=== PATIENT | female | born 1945 ===

== ENCOUNTER 2017-02-11 15:52 | Emergency (ER) | payer OTHER ==
[2017-02-11 16:23] VITALS: BP 151/71
--- NOTE | 2017-02-11 16:55 | UC ---
Skin Complaint HPI - HPI Summary HPI Summary: GOT A BUG BITE ON THE TIP OF HER NOSE ABOUT 12 DAYS AGO. DEVELOPED AN INTENSELY ITCHY BUMPY RASH LEFT SIDE OF NOSE AFTER THAT. PT FEELS IT IS SPREADING. NO FEVER. - History of Current Complaint Chief Complaint: [facility] Time Seen by Provider: 02/11/17 16:54 Stated Complaint: SKIN COMPLAINT Hx Obtained From: Patient Onset/Duration: Gradual Onset, Lasting Days, Still Present Timing: Constant Onset Severity: Moderate Current Severity: Moderate Pain Intensity: 0 Pain Scale Used: 0-10 Numeric Location: Discrete - LEFT SIDE OF NOSE Character: Pruritus, Redness Aggravating: Touch Alleviating: Nothing Associated Signs & Symptoms: Positive: Rash Related History: Insect Bite/Sting - Allergy/Home Medications Allergies/Adverse Reactions: Allergies Allergy/AdvReac Type Severity Reaction Status Date / Time No Known Allergies Allergy Verified 02/11/17 16:22 Review of Systems Constitutional: Negative Skin: Rash Respiratory: Negative Cardiovascular: Negative Gastrointestinal: Negative All Other Systems Reviewed And Are Negative: Yes PMH/Surg Hx/FS Hx/Imm Hx Previously Healthy: Yes - Surgical History Surgical History: Yes Surgery Procedure, Year, and Place: tubal - Family History Known Family History: Negative: Hypertension, Diabetes - Social History Alcohol Use: None Substance Use Type: None Smoking Status (MU): Never Smoked Tobacco Physical Exam Triage Information Reviewed: Yes Appearance: Well-Appearing, No Pain Distress, Well-Nourished Vital Signs: Initial Vital Signs Temp 98.1 F 02/11/17 16:16 Pulse 59 02/11/17 16:16 Resp 16 02/11/17 16:16 BP 151/71 02/11/17 16:16 Pulse Ox 100 02/11/17 16:16 Vital Signs Reviewed: Yes Eyes: Positive: Conjunctiva Clear ENT: Positive: Hearing grossly normal Neck: Positive: Supple Respiratory: Positive: No respiratory distress, No accessory muscle use Cardiovascular: Positive: Pulses Normal Abdomen Description: Positive: Soft Musculoskeletal: Positive: No Edema Neurological: Positive: Alert Psychological: Positive: Age Appropriate Behavior Skin: Positive: rashes - PAPULAR, INFLAMMED RASH LEFT SIDE OF NOSE WITH EXCORIATION. NOT TENDER Course/Dx - Diagnoses Provider Diagnoses: CONTACT DERMATITIS/CELLULITIS Discharge - Discharge Plan Condition: Stable Disposition: HOME Prescriptions: Cephalexin CAP* [Keflex 500 CAP*] 1,000 mg PO BID #28 cap Mupirocin 2% OINT* [Bactroban 2 % Oint*] 1 applic TOPICAL BID #1 tube predniSONE TAB* [Deltasone TAB*] 40 mg PO DAILY #10 tab Patient Education Materials: Contact Dermatitis (ED), Cellulitis (ED) Additional Instructions: YOUR SKIN RASH LOOKS LIKE IT MAY BE AN INFECTION THAT STARTED A CONTACT DERMATITIS. WILL COVER FOR BOTH ALLERGY AND INFECTION. IF YOU DO NOT IMPROVE KEEP YOUR DERMATOLOGY APPT ON 02/23/17. YOUR BLOOD PRESSURE WAS ELEVATED TODAY. THIS MAY BE DUE TO YOUR ACUTE CONDITION. MONITOR AND FOLLOW-UP WITH YOUR PCP WITHIN 4 WEEKS IF IT HAS NOT RETURNED TO NORMAL. CALL THE NUMBER BELOW FOR ASSISTANCE IN ESTABLISHING WITH A PCP An additional resource available to assist in finding the appropriate physician for your health care needs is [facility] ([facility]). You may contact them by calling [phone].
== END 2017-02-11 17:20 | disposition home or self-care (01) ==
LOC: UCCORT 15:52
DX: L25.9 Unspecified contact dermatitis, unspecified cause (principal); L03.211 Cellulitis of face
CPT/HCPCS: 99212; G0463